=== PATIENT | female | born 1965 | race Caucasian/White ===

== ENCOUNTER → 2025-03-21 02:13 | Outpatient (CLI) | payer BC, SELFPAY ==
--- NOTE | 2025-03-21 07:30 | DI.MRI_ITS ---
Exam(s) MR LOWER JOINT RT WO EXAM: MR LOWER JOINT RT WO CLINICAL HISTORY: R KNEE PAIN,ACUTE MEDIAL MENISCUS TEAR,[id number]. TECHNIQUE: Multiplanar multisequence MRI was performed. COMPARISON: CR XR KNEE COMPLETE MIN 4V RT from 01/08/2025 FINDINGS: BONES: There is no fracture or contusion pattern. JOINTS: There is a 5 mm cartilage defect overlying the patella with subchondral edema present. There is a small amount of fluid in the joint space. There is also a 5 mm loss of cartilage overlying the posterior aspect of the lateral femoral condyle. TENDONS: Extensor mechanism: Unremarkable. Medial retinaculum: Unremarkable. Lateral retinaculum: Unremarkable. Popliteus: Unremarkable. MUSCLES: Unremarkable. MENISCI: The medial meniscus is unremarkable. There is intermediate signal seen in the body of the lateral meniscus suspicious for degeneration. SOFT TISSUES: Unremarkable. LIGAMENTS: Anterior Cruciate: Unremarkable. Posterior Cruciate: Unremarkable. Medial Collateral:Unremarkable. Lateral Collateral: Unremarkable. OTHER: IMPRESSION: 1. There is no evidence of an acute medial meniscal tear. 2. Degeneration versus tear is seen in the lateral meniscus. 3. 5 mm grade 4 chondral defect overlying the lateral femoral condyle. 4. Grade 4 chondral defect overlying the patella with edema in the underlying bone. DATA REPOSITORY:
== END ==
LOC: DI 02:14
PROVIDERS: PCP Specialist/Technologist Athletic Trainer; Visit Provider Student in an Organized Health Care Education/Training Program
DX: S83.241A Other tear of medial meniscus, current injury, right knee, initial encounter (principal); X58.XXXA Exposure to other specified factors, initial encounter; M94.8X6 Other specified disorders of cartilage, lower leg
CPT/HCPCS: 73721